=== PATIENT | male | born 1950 | race African-American/Black ===

== ENCOUNTER 2018-06-19 10:36 | Inpatient (IN) | payer MEDICARE ==
[~2018-06-19] VITALS: Ht 188 cm; Wt 81.6 kg
[2018-06-19] MEDS ORDERED: ALBUTEROL SULF 2.5 MG/0.5ML(0.5%) NEB SOLN NEB ONE (10:45)
[2018-06-19] MEDS ORDERED: IPRATROPIUM BROM 0.5 MG/2.5ML INH SOL NEB ONE (10:45)
[2018-06-19] MEDS ORDERED: methylPREDNISolone SOD SUCC 125 MG/2 ML VL IV ONE (11:00)
[2018-06-19] MEDS ORDERED: IPRATROPIUM BROM 0.5 MG/2.5ML INH SOL HHN ONE (11:00)
[2018-06-19] MEDS ORDERED: ALBUTEROL SULF 2.5 MG/0.5ML(0.5%) NEB SOLN HHN ONE (11:00)
[2018-06-19] MEDS ORDERED: ACETAMINOPHEN 500 MG TAB PO PRN (11:30)
[2018-06-19] MEDS ORDERED: TEMAZEPAM 15 MG CAP PO PRN (11:30)
[2018-06-19] MEDS ORDERED: PROMETHAZINE HCL 25 MG/ML 1ML IV PRN (11:30)
[2018-06-19] MEDS ORDERED: traMADol HCL 50 MG TAB PO PRN (11:30)
[2018-06-19] MEDS ORDERED: MORPHINE SULF INJ 2 MG/ML SYRINGE 1ML IV PRN (11:30)
[2018-06-19] MEDS ORDERED: NITROGLYCERIN 0.4 MG SL TAB SL PRN (11:30)
[2018-06-19] MEDS ORDERED: ALBUTEROL SULF 2.5 MG/0.5ML(0.5%) NEB SOLN NEB PRN (11:30)
[2018-06-19] MEDS ORDERED: LACTULOSE 20Gm/30ML SOLN PO PRN (11:30)
[2018-06-19 11:31] LABS: Basophils # (auto) 0.1 uL; Basophils % (auto) 0.8 % (0.0-2.0); Eosinophils # (auto) 0.1 uL; Eosinophils % (auto) 1.3 % (0.0-7.0); Hematocrit 46.9 % (41.0-53.0); Hemoglobin 15.6 g/dL (13.5-17.5); Lymphocytes # (auto) 1.2 uL; Lymphocytes % (auto) 17.2 % (10.0-50.0); Mean Corpuscular Hemoglobin 29.7 pg (28.0-32.0); Mean Corpuscular Hgb Conc. 33.3 g/dL (32.0-36.0); Mean Corpuscular Volume 89.4 fL (80.0-100.0); Monocytes # (auto) 0.9 uL; Neutrophils # (auto) 4.9 uL; Neutrophils % (auto) 68.7 % (37.0-80.0); Nucleated Red Blood Cells % 0.1 %; Platelet Count (auto) 209 10^3/uL (140-450); Red Blood Cells 5.24 10^6/uL (4.5-5.90); Red Cell Distribution Width 13.6 % (11.8-14.3); White Blood Cell 7.1 10^3/uL (4.4-10.8)
[2018-06-19 11:45] LABS: INR 1.08 (0.9-1.15); Partial Thromboplastin Time 29.9 sec (23.78-33.04); Prothrombin Time 11.5 sec (9.27-12.13)
[2018-06-19 11:55] LABS: Alanine Aminotransferase 43 U/L (16-61); Albumin 4.3 g/dL (3.4-5.0); Anion Gap 9 (5-15); Blood Urea Nitrogen 13 mg/dL (7-18); Calcium 9.1 mg/dL (8.5-10.1); Carbon Dioxide 29 mmol/L (21-32); Chloride 99 mmol/L (98-107); Glucose 105 mg/dL (74-106); Magnesium 2.4 mg/dL (1.6-2.6); Potassium 3.8 mmol/L (3.5-5.1); Sodium 137 mmol/L (136-145)
[2018-06-19 12:00] LABS: Alkaline Phosphatase 95 U/L (45-117); Aspartate Aminotransferase 35 U/L (15-37); BUN/Creatinine Ratio 10.9; Bilirubin, Total 1.1 mg/dL (0.2-1.0); GFR African American 78 mL/min; GFR Non-African American 65 mL/min; Total Protein 7.7 g/dL (6.4-8.2)
[2018-06-19 12:10] VITALS: BP 124/80
--- NOTE | 2018-06-19 12:30 | NUR ---
Admit to [facility] MACO TEE JR admitted to [facility] via gurney on classroom monitor, and portable 02. Patient transferred to bed, connected to unit monitoring and oxygen, and weighed by bedscale. Patient oriented to GINNA LUBIN RN primary RN, unit, room, bed, and unit policies regarding patient care and visiting hours. All questions and concerns addressed, patient verbalized understanding. Assessment done, Vital sign : BT 98.3, HR 102 /min, RR 22 O2 saturation 96% with O2 NC 3 LPM, still has wheezing at both lung.
[2018-06-19 12:40] VITALS: BP 124/80
[2018-06-19] MEDS: DOXYCYCLINE 100MG/250ML 250 ML IV SCH ×2 (12:41→23:51)
[2018-06-19] MEDS: SODIUM CHLORIDE 0.9% 1,000 ML IV SCH (12:42)
--- NOTE | 2018-06-19 13:00 | NUR ---
His at the bedside, medication list obtained and return patient's medication to his to bring back home.
[2018-06-19] MEDS: IPRATROPIUM BROM 0.5 MG/2.5ML INH SOL NEB SCH ×2 (13:29→17:57)
[2018-06-19] MEDS: ALBUTEROL SULF 2.5 MG/0.5ML(0.5%) NEB SOLN NEB SCH ×2 (13:29→17:57)
[2018-06-19] MEDS ORDERED: POTASSIUM CHL 20 Meq TABLET PO ONE (13:30)
[2018-06-19] MEDS ORDERED: BENZ100C97 PO (13:33)
[2018-06-19] MEDS ORDERED: ALBU1AER4 IN (13:36)
[2018-06-19] MEDS ORDERED: MOME220A2 IN (13:36)
[2018-06-19] MEDS ORDERED: HYDR12.56 PO (13:38)
--- NOTE | 2018-06-19 13:40 | NUR ---
Reported labs and patient's condition to Dr. Camilo MD made aware, received new orders at this time. Patient made aware.
[2018-06-19] MEDS: PROMETHAZINE W/CODEINE 5 ML ORAL SYRUP PO PRN ×3 (13:43→22:54)
[2018-06-19 14:05] VITALS: BP 124/80
--- NOTE | 2018-06-19 14:47 | NUR ---
Patient lying on the bed with elevated HOB, watching TV. He stated that less coughing after medication given. Still has wheezing, HR 80-90/min, SBP 110-130 mmHg, will continue to monitor and care.
[2018-06-19 16:00] VITALS: BP 114/68
--- NOTE | 2018-06-19 16:22 | NUR ---
Patient lying on the bed with elevated HOB, no coughing noted but still has muscle clamp both legs. Will continue to monitor. HR 88, RR 21, O2 saturation 98%.
[2018-06-19] MEDS: methylPREDNISolone SOD SUCC 40 MG/ML VL IV SCH ×2 (18:09→23:51)
--- NOTE | 2018-06-19 18:15 | NUR ---
Patient sitting on the bed, his at the bedside, Dinner tray provided.
--- NOTE | 2018-06-19 19:05 | NUR ---
OPENING SHIFT RECEIVED REPORT FROM DAY SHIFT RN. ASSUMED CARE OF PATIENT. PATIENT IN BED WITH AT BEDSIDE. NO SIGNS OR SYMPTOMS OF SOB, PAIN, OR DISTRESS. CURRENTLY ON 3L NASAL CANULA, 02 SAT - 97%. UPDATED PATIENT ON PLAN OF CARE. BED IN LOWEST POSITION, SIDE RAILS UP X2, CALL LIGHT WITHIN REACH. WILL CONTINUE TO MONITOR.
[2018-06-19 19:57] VITALS: BP 116/78
--- NOTE | 2018-06-19 20:10 | NUR ---
SPUTUM CULTURE COLLECTED AND SENT TO LAB.
[2018-06-19] MEDS ORDERED: guaiFENesin 200 MG/10 ML UD PO PRN (23:00)
[2018-06-20] VITALS: BP 123/76
--- NOTE | 2018-06-20 00:05 | NUR ---
ROUNDS PATIENT IN BED WATCHING TV. NO SIGNS OR SYMPTOMS OF SOB, PAIN OR DISTRESS. CURRENTLY ON 3L 02 NASAL CANULA, 02 SAT - 96%. PATIENT COMPLAINING OF SORE THROAT DUE TO CONSTANT COUGHING. BED IN LOWEST POSITION, SIDE RAILS UP X2, CALL LIGHT WITHIN REACH. WILL CONTINUE TO MONITOR.
[2018-06-20] MEDS: ALBUTEROL SULF 2.5 MG/0.5ML(0.5%) NEB SOLN NEB SCH ×4 (00:06→18:35)
[2018-06-20] MEDS: IPRATROPIUM BROM 0.5 MG/2.5ML INH SOL NEB SCH ×4 (00:07→18:35)
[2018-06-20] MEDS: SODIUM CHLORIDE 0.9% 1,000 ML IV SCH ×3 (01:00→20:00)
--- NOTE | 2018-06-20 02:45 | NUR ---
IV INSERTION RIGHT FOREARM IV INFILTRATED AND BURNING, IV REMOVED - CATHETER INTACT. NEW IV 20G INSERTED IN RIGHT FOREARM. PATIENT TOLERATED WELL. NO SIGNS OF INFILTRATION. DRESSING CLEAN/DRY/INTACT.
--- NOTE | 2018-06-20 03:10 | NUR ---
PATIENT COUGHING CONTINUOUSLY, NOTED OF SORE THROAT DUE TO COUGH, MEASURES TAKEN FOR COUGH. NO SIGNS OR SYMPTOMS OF SOB, PAIN OR DISTRESS. WILL CONTINUE TO MONITOR.
[2018-06-20] MEDS: PROMETHAZINE W/CODEINE 5 ML ORAL SYRUP PO PRN ×3 (03:22→18:23)
[2018-06-20 04:10] VITALS: BP 112/79
--- NOTE | 2018-06-20 04:10 | NUR ---
MORNING CARE PATIENT REFUSED MORNING CARE, LINEN CHANGE AND GOWN CHANGE. PATIENT STATES, "NO THATS OK ILL DO IT LATER TODAY." REPOSITIONED PATIENT FOR COMFORT. NO SIGNS OR SYMPTOMS OF SOB, PAIN OR DISTRESS. WILL CONTINUE TO MONITOR.
[2018-06-20] MEDS: methylPREDNISolone SOD SUCC 40 MG/ML VL IV SCH ×3 (05:59→18:23)
--- NOTE | 2018-06-20 06:40 | NUR ---
PARTIAL LINEN CHANGE AND KARUNA CARE PERFORMED. NO SIGNS OR SYMPTOMS OF SOB, PAIN OR DISTRESS. WILL CONTINUE TO MONITOR.
--- NOTE | 2018-06-20 06:45 | NUR ---
END OF SHIFT PATIENT IN BED TALKING ON THE PHONE. NO SIGNS OR SYMPTOMS OF SOB, PAIN OR DISTRESS. CURRENTLY ON 3L 02 NASAL CANULA, 02 SAT - 96%. BED IN LOWEST POSITION, SIDE RAILS UP X2, CALL LIGHT WITHIN REACH. WILL ENDORSE CARE TO DAY SHIFT RN.
[2018-06-20 08:57] VITALS: BP 141/69
[2018-06-20] MEDS: ENOXAPARIN SOD 40 MG/0.4 ML SYRINGE SC SCH ×2 (09:14→10:00)
--- NOTE | 2018-06-20 10:14 | NUR ---
ACTIVITY PATIENT OOB AMBULATED TO RESTROOM USING STANDBY ASSISTANCE. 02 REMOVED, PT POX REMAINED 92-94%. SLIGHT SOB NOTED. PT NOW SITTING UP IN CHAIR PERFORMING AM CARE INDEPENDENTLY.
--- NOTE | 2018-06-20 10:35 | NUR ---
PATIENT POX DECREASED TO 88-90 ON ROOM AIR WHILE IN CHAIR, 2 L/MIN NC IN PLACE, PT CONTINUE TO HAVE A DRY, NON PRODUCTIVE COUGH WITH WHEEZING THROUGHOUT.
[2018-06-20 11:55] VITALS: BP 113/69
[2018-06-20] MEDS: DOXYCYCLINE 100MG/250ML 250 ML IV SCH (12:36)
--- NOTE | 2018-06-20 12:44 | NUR ---
DR. BUTLER AT BEDSIDE MD UPDATED ON PATIENTS STATUS. NEW ORDERS IN PLACE. MD AWARE PATIENT IS REQUESTING TO STOP LOVENOX SQ, PER MD IT IS OK TO D/C SCDS TO BE APPLIED AND IN PLACE.
--- NOTE | 2018-06-20 13:43 | NUR ---
CHILD CARE DEVELOPMENT SPECIALIST AT BEDSIDE
--- NOTE | 2018-06-20 14:44 | NUR ---
REPORT GIVEN TO ÁNGEL JACOB. UPDATED ON PLAN OF CARE, QUESTIONS AND CONCERNS ADDRESSED. PT TO BE TAKEN VIA W/C. Addendum: 06/20/18 at 1450 by Bonnie Holcomb RN AMMEND PATIENT TO BE T[facility] BED[facility]
--- NOTE | 2018-06-20 15:08 | NUR ---
Patient transferred via bed from [facility] to Room 247B. Patient awake, oriented x4. No cute distress noted. Family member at bedside.
[2018-06-20 17:40] VITALS: BP 120/82
[2018-06-20 22:00] VITALS: BP 125/77
[2018-06-21] MEDS: methylPREDNISolone SOD SUCC 40 MG/ML VL IV SCH ×4 (00:06→18:00)
[2018-06-21] MEDS: DOXYCYCLINE 100MG/250ML 250 ML IV SCH ×2 (00:07→12:20)
[2018-06-21] MEDS: ALBUTEROL SULF 2.5 MG/0.5ML(0.5%) NEB SOLN NEB SCH ×5 (00:40→22:13)
[2018-06-21] MEDS: IPRATROPIUM BROM 0.5 MG/2.5ML INH SOL NEB SCH ×5 (00:41→22:13)
[2018-06-21 05:00] VITALS: BP 138/87
[2018-06-21 07:18] LABS: Basophils # (auto) 0 uL; Basophils % (auto) 0.1 % (0.0-2.0); Eosinophils # (auto) 0 uL; Hematocrit 42.8 % (41.0-53.0); Lymphocytes # (auto) 1.1 uL; Lymphocytes % (auto) 6.6 % (10.0-50.0); Mean Corpuscular Hemoglobin 29.3 pg (28.0-32.0); Mean Corpuscular Hgb Conc. 32.7 g/dL (32.0-36.0); Mean Corpuscular Volume 89.9 fL (80.0-100.0); Monocytes % (auto) 5.7 % (0.0-12.0); Neutrophils # (auto) 14.7 uL; Neutrophils % (auto) 87.6 % (37.0-80.0); Platelet Count (auto) 216 10^3/uL (140-450); Red Blood Cells 4.76 10^6/uL (4.5-5.90); Red Cell Distribution Width 13.7 % (11.8-14.3); White Blood Cell 16.7 10^3/uL (4.4-10.8)
[2018-06-21 07:31] LABS: Potassium 4.3 mmol/L (3.5-5.1)
[2018-06-21 07:53] LABS: BUN/Creatinine Ratio 20.7; Calcium 8.9 mg/dL (8.5-10.1)
[2018-06-21 09:00] VITALS: BP 122/71
--- NOTE | 2018-06-21 09:00 | NUR ---
AMBULATED WITH PT AROUND ENTIRE DEPT WITH PORTABLE O2. NO DYSPNEA, NO CHEST PAIN
--- NOTE | 2018-06-21 10:00 | NUR ---
TEACHING WE TALKED ABOUT AVOIDING ASTHMA FLARES AND TREATMENT FOR. ENCOURAGED TO INCREASE FLUID INTAKE
[2018-06-21] MEDS: PANTOPRAZOLE 40 MG TAB PO SCH (10:26)
--- NOTE | 2018-06-21 11:15 | NUR ---
C/O CHEST TIGHTNESS ACROSS LOWER CHEST, WORSE WHEN HE COUGHS. EKG DONE, RT CALLED FOR MED NEB
[2018-06-21 13:00] VITALS: BP 122/78
[2018-06-21 17:00] VITALS: BP 124/78
[2018-06-21] MEDS: BUDESONIDE (INHALATION) 0.5 MG/2 ML NEB NEB SCH (18:41)
--- NOTE | 2018-06-21 19:30 | NUR ---
Opening shift note: A&Ox4, resting in bed. [facility] downgrade on 06/20/18. Currently on 2LO2 via NC, patient does not wear at home; pain level 0/10; baseline and currently ambulating independently with a cane. Bed locked in lowest position, side rails up x2, and call light within reach. IV 20 g in right forearm removed related to infiltration. Heat pack applied. Skin intact, no open wounds. 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 POC discussed and questions answered. Will continue to round prn.
[2018-06-21] MEDS: PROMETHAZINE W/CODEINE 5 ML ORAL SYRUP PO PRN (20:57)
[2018-06-21 22:00] VITALS: BP 117/76
--- NOTE | 2018-06-21 22:00 | NUR ---
New IV: IV 22 g inserted in left forearm x1 attempt. Patient tolerated well. NS resumed at 50 ml/hr.
[2018-06-22] MEDS: DOXYCYCLINE 100MG/250ML 250 ML IV SCH (00:29)
[2018-06-22] MEDS: methylPREDNISolone SOD SUCC 40 MG/ML VL IV SCH ×6 (00:29→18:08)
[2018-06-22 05:00] VITALS: BP 128/86
[2018-06-22] MEDS: SODIUM CHLORIDE 0.9% 1,000 ML IV SCH ×2 (05:00→11:45)
[2018-06-22] MEDS: ALBUTEROL SULF 2.5 MG/0.5ML(0.5%) NEB SOLN NEB SCH ×5 (06:49→21:51)
[2018-06-22] MEDS: IPRATROPIUM BROM 0.5 MG/2.5ML INH SOL NEB SCH ×5 (06:49→21:51)
[2018-06-22 08:46] VITALS: BP 126/91
[2018-06-22 08:55] VITALS: BP 126/91
[2018-06-22] MEDS: BUDESONIDE (INHALATION) 0.5 MG/2 ML NEB NEB SCH ×2 (10:24→18:13)
[2018-06-22] MEDS: PANTOPRAZOLE 40 MG TAB PO SCH (10:27)
--- NOTE | 2018-06-22 10:30 | NUR ---
DR. BARCENAS IN; LABS REVIEWED. PT HOPING TO GO HOME TODAY BUT WILL NOT.
[2018-06-22] MEDS ORDERED: cefTRIAXone 1GM/50ML D5W 50 ML IV ONE (11:00)
--- NOTE | 2018-06-22 11:00 | NUR ---
REQUESTED BY DR. BARCENAS, PULSE OX CHECKED BEFORE AND AFTER AMBULATION. BEFORE, OFF 02-94%. AFTER AMB THE ENTIRE UNIT WITHOUT O2 SPO2-87%
--- NOTE | 2018-06-22 12:51 | NUR ---
NUTRITION ASSESSMENT NOTES Please refer to link notes of nutrition screen form filed under the intervention section of the plan of care for further details. Est. Needs: 2050 kcal to 2450 kcal (25-30 kcal/kgBW), 82 gms to 98 gms pro (1.0-1.2 gms/kgBW). Will continue to monitor pertinent labs and reassess nutrient need prn Thank you. Addendum: 06/22/18 at [address] Amended: Links added.
[2018-06-22 13:00] VITALS: BP 122/80
[2018-06-22] MEDS: PROMETHAZINE W/CODEINE 5 ML ORAL SYRUP PO PRN ×2 (14:10→19:33)
[2018-06-22 17:00] VITALS: BP 145/92
--- NOTE | 2018-06-22 19:45 | NUR ---
Opening shift note: A&Ox4, resting in bed. [facility] downgrade on 06/20/18. Currently on 2LO2 via NC, patient does not wear at home; pain level 0/10; baseline and currently ambulating independently with a cane. Bed locked in lowest position, side rails up x2, and call light within reach. IV 22 g in left forearm inserted on 06/22/18 running NS at 50 ml/hr. Skin intact, no open wounds. 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 POC discussed and questions answered. Will continue to round prn.
[2018-06-22 22:27] VITALS: BP 111/81
[2018-06-23] MEDS: methylPREDNISolone SOD SUCC 40 MG/ML VL IV SCH ×3 (00:13→12:40)
[2018-06-23] MEDS: PROMETHAZINE W/CODEINE 5 ML ORAL SYRUP PO PRN ×4 (00:13→13:40)
[2018-06-23] MEDS: IPRATROPIUM BROM 0.5 MG/2.5ML INH SOL NEB SCH ×4 (02:04→15:23)
[2018-06-23] MEDS: ALBUTEROL SULF 2.5 MG/0.5ML(0.5%) NEB SOLN NEB SCH ×4 (02:04→15:23)
--- NOTE | 2018-06-23 03:38 | NUR ---
Drug screen urine sent to lab via [employer] system.
[2018-06-23 05:20] LABS: Alcohol, Urine < 3.0 mg/dL (0-5); Amphetamine Screen, Urine NEGATIVE (NEGATIVE); Barbiturate Scree,Urine NEGATIVE (NEGATIVE); Benzodiazephine Screen, Urine NEGATIVE (NEGATIVE); Cannabinoid Screen, Urine NEGATIVE (NEGATIVE); Cocaine Screen, Urine NEGATIVE (NEGATIVE); Opiate Scree,Urine POSITIVE (NEGATIVE); Phencyclidine Screen, Urine NEGATIVE (NEGATIVE)
[2018-06-23 05:37] VITALS: BP 120/68
[2018-06-23] MEDS: BUDESONIDE (INHALATION) 0.5 MG/2 ML NEB NEB SCH (06:22)
[2018-06-23 07:02] LABS: Basophils # (auto) 0 uL; Basophils % (auto) 0.1 % (0.0-2.0); Eosinophils # (auto) 0 uL; Hematocrit 40.1 % (41.0-53.0); Lymphocytes # (auto) 0.8 uL; Lymphocytes % (auto) 5.1 % (10.0-50.0); Mean Corpuscular Hemoglobin 29.3 pg (28.0-32.0); Mean Corpuscular Hgb Conc. 32.4 g/dL (32.0-36.0); Mean Corpuscular Volume 90.5 fL (80.0-100.0); Monocytes # (auto) 0.5 uL; Monocytes % (auto) 2.9 % (0.0-12.0); Neutrophils # (auto) 14.5 uL; Neutrophils % (auto) 91.9 % (37.0-80.0); Platelet Count (auto) 190 10^3/uL (140-450); Red Blood Cells 4.43 10^6/uL (4.5-5.90); Red Cell Distribution Width 13.4 % (11.8-14.3); White Blood Cell 15.7 10^3/uL (4.4-10.8)
[2018-06-23 07:38] LABS: BUN/Creatinine Ratio 21.5; Calcium 8.7 mg/dL (8.5-10.1); Potassium 4.4 mmol/L (3.5-5.1)
[2018-06-23 07:44] VITALS: BP 133/70
[2018-06-23] MEDS ORDERED: cefTRIAXone 1GM/50ML D5W 50 ML IV SCH (09:00)
[2018-06-23] MEDS: PANTOPRAZOLE 40 MG TAB PO SCH (09:38)
[2018-06-23] MEDS ORDERED: METH4PAK PO (11:54)
[2018-06-23] MEDS ORDERED: LEVO750T2 PO (11:54)
[2018-06-23 13:00] VITALS: BP 127/93
[2018-06-23 14:35] VITALS: BP 127/93
--- NOTE | 2018-06-23 14:55 | NUR ---
PT Saw patient ambulating independently at the hallway with D/C patient to nursing. Addendum: 06/23/18 at 1456 by CAROLA ARANA PTT Amended: Links added.
--- NOTE | 2018-06-23 16:15 | NUR ---
Discharge instructions given as ordered. Encourage to follow up with PMD as instructed. [facility] All questions and concerns addressed. Patient verbalized understanding. IV removed with catheter intact, pressure dressing applied. Telemetry unit returned to ICU.
--- NOTE | 2018-06-23 16:43 | NUR ---
Patient taken to vehicle via wheelchair with all personal belongings, accompanied by staff and family member. No distress noted at time of departure.
== END 2018-06-23 16:43 | disposition home or self-care (01) | DRG 189 ==
LOC: ER 10:36 → TELE 11:30 → DOU IN ICU 12:08 → EAST 06-20 15:09 → TELE-EAST 06-20 15:11
PROVIDERS: ADMIT Internal Medicine; ATTEND Internal Medicine
DX: J96.00 Acute respiratory failure, unspecified whether with hypoxia or hypercapnia (principal); J45.52 Severe persistent asthma with status asthmaticus; J20.9 Acute bronchitis, unspecified; I10 Essential (primary) hypertension; F12.90 Cannabis use, unspecified, uncomplicated; Z87.891 Personal history of nicotine dependence; Z82.5 Family history of asthma and other chronic lower respiratory diseases; D72.829 Elevated white blood cell count, unspecified; T38.0X5A Adverse effect of glucocorticoids and synthetic analogues, initial encounter; Y92.89 Other specified places as the place of occurrence of the external cause; Z91.012 Allergy to eggs
CPT/HCPCS: 36415; 36600; 71045; 80048; 80053; 80061; 80307; 82805; 83735; 83880; 84484; 85025; 85610; 85730; 87070; 87077; 87081; 87186; 87205; 93005; 93306; 94640; 94761; 96374; 99291; G0378; J0696; J3490

== ENCOUNTER → 2018-07-12 | Outpatient (CLI) | payer MEDICARE ==
[~2018-07-12] MED LIST: ALBU1AER4 IN; BENZ100C97 PO; HYDR12.56 PO; LEVO750T2 PO; METH4PAK PO; MOME220A2 IN
[2018-07-12 11:53] LABS: Basophils # (auto) 0 uL; Basophils % (auto) 0.7 % (0.0-2.0); Eosinophils # (auto) 0.1 uL; Eosinophils % (auto) 2.7 % (0.0-7.0); Hematocrit 43.4 % (41.0-53.0); Hemoglobin 14.4 g/dL (13.5-17.5); Lymphocytes # (auto) 2.1 uL; Lymphocytes % (auto) 42.6 % (10.0-50.0); Mean Corpuscular Hemoglobin 29.3 pg (28.0-32.0); Mean Corpuscular Hgb Conc. 33.1 g/dL (32.0-36.0); Mean Corpuscular Volume 88.7 fL (80.0-100.0); Monocytes # (auto) 0.4 uL; Monocytes % (auto) 9.1 % (0.0-12.0); Neutrophils # (auto) 2.2 uL; Neutrophils % (auto) 44.9 % (37.0-80.0); Nucleated Red Blood Cells % 0.1 %; Platelet Count (auto) 275 10^3/uL (140-450); Red Cell Distribution Width 13.8 % (11.8-14.3); White Blood Cell 4.9 10^3/uL (4.4-10.8)
== END | disposition home or self-care (01) ==
LOC: LAB 11:22
PROVIDERS: ATTEND Internal Medicine
DX: D64.9 Anemia, unspecified (principal)
CPT/HCPCS: 36415; 85025

== ENCOUNTER 2021-07-07 02:37 | Inpatient (IN) | payer BC, MEDICARE ==
[~2021-07-07] VITALS: Ht 188 cm; Wt 82.8 kg
[~2021-07-07 02:37] MED LIST changes: -LEVO750T2 PO; +LEVO750T8 PO
[2021-07-07 03:32] LABS: Basophils # (auto) 0.1 10 ^3/uL (0-0.2); Basophils % (auto) 0.7 % (0.0-2.0); Eosinophils # (auto) 0 10 ^3/uL (0-0.8); Eosinophils % (auto) 0.3 % (0.0-7.0); Hemoglobin 14.2 g/dL (13.5-17.5); Lymphocytes # (auto) 1.2 10 ^3/uL (0.4-5.4); Mean Corpuscular Hgb Conc. 33.9 g/dL (32.0-36.0); Mean Corpuscular Volume 88.6 fL (80.0-100.0); Monocytes # (auto) 1.1 10 ^3/uL (0-1.3); Monocytes % (auto) 11.9 % (0.0-12.0); Neutrophils # (auto) 6.6 10 ^3/uL (1.6-8.6); Neutrophils % (auto) 74.1 % (37.0-80.0); Nucleated Red Blood Cells % 0.1 %; Red Blood Cells 4.74 10^6/uL (4.5-5.90); Red Cell Distribution Width 13.6 % (11.8-14.3); White Blood Cell 8.9 10^3/uL (4.4-10.8)
[2021-07-07] MEDS ORDERED: ALBUTEROL SULF 2.5 MG/0.5ML(0.5%) NEB SOLN NEB ONE ×2 (03:45→13:30)
[2021-07-07] MEDS ORDERED: methylPREDNISolone SOD SUCC 125 MG/2 ML VL IV ONE (03:45)
[2021-07-07] MEDS ORDERED: IPRATROPIUM BROM 0.5 MG/2.5ML INH SOL NEB ONE (03:45)
[2021-07-07 03:52] LABS: Albumin 3.8 g/dL (3.4-5.0); Calcium 8.5 mg/dL (8.5-10.1); Potassium 3.6 mmol/L (3.5-5.1)
[2021-07-07 03:54] LABS: BUN/Creatinine Ratio 9.9
[2021-07-07 03:57] LABS: Bilirubin, Total 1.1 mg/dL (0.2-1.0); Total Protein 7.1 g/dL (6.4-8.2)
[2021-07-07] MEDS ORDERED: ALBUTEROL SULF 2.5 MG/0.5ML(0.5%) NEB SOLN NEB PRN (07:00)
[2021-07-07] MEDS ORDERED: ONDANSETRON HCL 4 MG/2 ML VIAL IV PRN (07:00)
[2021-07-07] MEDS ORDERED: ACETAMINOPHEN 325 MG TAB PO PRN (07:00)
[2021-07-07] MEDS ORDERED: MORPHINE SULFATE INJ 2 MG/ml SYRG IV PRN (07:00)
[2021-07-07] MEDS ORDERED: NITROGLYCERIN 0.4 MG SL TAB SL PRN (07:00)
[2021-07-07] MEDS: PANTOPRAZOLE 40 MG TAB PO SCH (09:50)
[2021-07-07] MEDS: HCTZ 25 MG TAB PO SCH (09:50)
[2021-07-07] MEDS: methylPREDNISolone SOD SUCC 125 MG/2 ML VL IV SCH ×2 (09:56→21:35)
[2021-07-07 10:33] VITALS: BP 120/76
[2021-07-07] MEDS ORDERED: cefTRIAXone 1GM/50ML D5W 50 ML IV ONE (11:15)
[2021-07-07] MEDS ORDERED: HCTZ 25 MG TAB PO ONE (11:15)
[2021-07-07] MEDS ORDERED: ACET1CAP18 PO (11:48)
[2021-07-07] MEDS ORDERED: TIOTCAP IN (11:48)
[2021-07-07] MEDS ORDERED: BUDE0.253 IN (11:48)
[2021-07-07] MEDS ORDERED: IPRATROPIUM BROM 0.5 MG/2.5ML INH SOL NEB SCH (12:00)
[2021-07-07 12:14] LABS: INR 1.27 (0.9-1.15); Partial Thromboplastin Time 29.6 sec (23.6-33.0)
[2021-07-07 13:11] VITALS: BP 121/68
[2021-07-07] MEDS: levoFLOXacin 500MG 100 ML IV SCH (13:15)
[2021-07-07] MEDS: IPRATROPIUM BROM 0.5 MG/2.5ML INH SOL NEB SCH ×3 (13:52→21:56)
[2021-07-07] MEDS: ALBUTEROL SULF 2.5 MG/0.5ML(0.5%) NEB SOLN NEB SCH ×3 (14:00→21:56)
[2021-07-07 16:44] VITALS: BP 106/75
[2021-07-07] MEDS ORDERED: WARFARIN SODIUM 5 MG TAB PO ONE (20:00)
[2021-07-07 22:00] VITALS: BP 128/97
[2021-07-08] MEDS: ALBUTEROL SULF 2.5 MG/0.5ML(0.5%) NEB SOLN NEB SCH ×7 (02:25→22:28)
[2021-07-08] MEDS: IPRATROPIUM BROM 0.5 MG/2.5ML INH SOL NEB SCH ×7 (02:25→22:28)
[2021-07-08 05:00] VITALS: BP_SYST 112; BP_SYST 140; BP_DIAS 69; BP_DIAS 94
[2021-07-08 07:13] LABS: Basophils # (auto) 0 10 ^3/uL (0-0.2); Eosinophils # (auto) 0 10 ^3/uL (0-0.8); Hematocrit 42.7 % (41.0-53.0); Hemoglobin 14.1 g/dL (13.5-17.5); Lymphocytes # (auto) 0.7 10 ^3/uL (0.4-5.4); Lymphocytes % (auto) 4.2 % (10.0-50.0); Mean Corpuscular Hemoglobin 29.8 pg (28.0-32.0); Mean Corpuscular Hgb Conc. 33.1 g/dL (32.0-36.0); Mean Corpuscular Volume 90.2 fL (80.0-100.0); Monocytes # (auto) 0.7 10 ^3/uL (0-1.3); Monocytes % (auto) 4.3 % (0.0-12.0); Neutrophils # (auto) 15.7 10 ^3/uL (1.6-8.6); Neutrophils % (auto) 91.5 % (37.0-80.0); Red Blood Cells 4.74 10^6/uL (4.5-5.90); Red Cell Distribution Width 13.7 % (11.8-14.3); White Blood Cell 17.1 10^3/uL (4.4-10.8)
[2021-07-08 07:17] LABS: Calcium 8.8 mg/dL (8.5-10.1); Potassium 3.8 mmol/L (3.5-5.1)
[2021-07-08 07:22] LABS: Albumin 3.6 g/dL (3.4-5.0); BUN/Creatinine Ratio 17.2; Bilirubin, Total 0.7 mg/dL (0.2-1.0); Total Protein 7.3 g/dL (6.4-8.2)
[2021-07-08] MEDS ORDERED: IOHEXOL 350 MG/ML 100ML IJ ONE (07:24)
[2021-07-08 07:28] LABS: INR 1.19 (0.9-1.15)
[2021-07-08 08:30] VITALS: BP 111/54
[2021-07-08] MEDS ORDERED: cefTRIAXone 1GM/50ML D5W 50 ML IV SCH (09:00)
[2021-07-08 09:05] VITALS: BP 111/54
[2021-07-08] MEDS: levoFLOXacin 500MG 100 ML IV SCH (10:01)
[2021-07-08] MEDS: HCTZ 25 MG TAB PO SCH (10:02)
[2021-07-08] MEDS: methylPREDNISolone SOD SUCC 125 MG/2 ML VL IV SCH ×2 (10:02→21:43)
[2021-07-08] MEDS: PANTOPRAZOLE 40 MG TAB PO SCH (10:02)
[2021-07-08 12:40] VITALS: BP 124/90
[2021-07-08] MEDS ORDERED: WARFARIN SODIUM 5 MG TAB PO ONE (17:00)
[2021-07-08 22:00] VITALS: BP 120/85
[2021-07-09] MEDS: IPRATROPIUM BROM 0.5 MG/2.5ML INH SOL NEB SCH ×3 (02:45→11:00)
[2021-07-09] MEDS: ALBUTEROL SULF 2.5 MG/0.5ML(0.5%) NEB SOLN NEB SCH ×3 (02:45→11:00)
[2021-07-09 05:00] VITALS: BP 127/86
[2021-07-09 06:24] LABS: INR 1.37 (0.9-1.15)
[2021-07-09 09:00] VITALS: BP 131/94
[2021-07-09] MEDS: methylPREDNISolone SOD SUCC 125 MG/2 ML VL IV SCH ×2 (10:49→22:00)
[2021-07-09] MEDS: levoFLOXacin 500MG 100 ML IV SCH (10:49)
[2021-07-09] MEDS: HCTZ 25 MG TAB PO SCH (10:50)
[2021-07-09 13:00] VITALS: BP 124/91
[2021-07-09] MEDS ORDERED: SPIR25TA PO (15:59)
[2021-07-09] MEDS ORDERED: BUDE0.253 IN (15:59)
[2021-07-09] MEDS ORDERED: LEVO-28 PO (15:59)
[2021-07-09] MEDS ORDERED: ALBU108A5 IN (15:59)
[2021-07-09 16:34] VITALS: BP 125/90
[2021-07-09] MEDS ORDERED: WARFARIN SODIUM 5 MG TAB PO ONE (17:00)
[2021-07-09] MEDS ORDERED: ALBUTEROL SULF 2 MG/5ML ORAL SYRUP PO SCH (18:00)
[2021-07-09] MEDS: SYMBICORT IN SCH (20:21)
[2021-07-09 22:00] VITALS: BP 133/84
[2021-07-09] MEDS ORDERED: PATIENTS OWN MEDICATION PO SCH (22:00)
[2021-07-09] MEDS: BUDESONIDE (INHALATION) 0.5 MG/2 ML NEB NEB SCH (22:53)
[2021-07-10 05:00] VITALS: BP 130/94
[2021-07-10] MEDS: BUDESONIDE (INHALATION) 0.5 MG/2 ML NEB NEB SCH (06:32)
[2021-07-10 06:44] LABS: INR 1.54 (0.9-1.15)
[2021-07-10 09:00] VITALS: BP 120/74
[2021-07-10] MEDS: SYMBICORT IN SCH (09:08)
[2021-07-10] MEDS: HCTZ 25 MG TAB PO SCH (09:09)
[2021-07-10] MEDS: methylPREDNISolone SOD SUCC 125 MG/2 ML VL IV SCH (09:09)
[2021-07-10] MEDS ORDERED: levoFLOXacin 500 MG TAB PO SCH (10:00)
[2021-07-10 10:24] VITALS: BP 120/74
[2021-07-10 11:09] VITALS: BP 120/74
[2021-07-10] MEDS ORDERED: SPIRIVA INHALER IN SCH (11:30)
[2021-07-10] MEDS ORDERED: WARFARIN SODIUM 2.5 MG TAB PO ONE (17:00)
== END 2021-07-10 15:54 | disposition home health service (06) | DRG 190 ==
LOC: ER 02:37 → EDBD 02:37 → OVERFLOW 06:52 → TELE-WESTW 08:57
PROVIDERS: ADMIT Nurse Practitioner; ATTEND Hospitalist
DX: J44.1 Chronic obstructive pulmonary disease with (acute) exacerbation (principal); J96.21 Acute and chronic respiratory failure with hypoxia; J98.11 Atelectasis; I50.22 Chronic systolic (congestive) heart failure; I11.0 Hypertensive heart disease with heart failure; Z20.822 Contact with and (suspected) exposure to COVID-19; D72.829 Elevated white blood cell count, unspecified; Z86.718 Personal history of other venous thrombosis and embolism; Z79.899 Other long term (current) drug therapy; Z80.1 Family history of malignant neoplasm of trachea, bronchus and lung; Z82.5 Family history of asthma and other chronic lower respiratory diseases; Z83.3 Family history of diabetes mellitus; Z87.891 Personal history of nicotine dependence; Z99.81 Dependence on supplemental oxygen
CPT/HCPCS: 36415; 71045; 71275; 80053; 83880; 84484; 85025; 85379; 85610; 85730; 87040; 92610; 93005; 93306; 94640; 94644; 96374; 99291; G0378; J0696; J1956